=== PATIENT | male | born 1965 ===

== ENCOUNTER → 2018-12-04 | Day surgery (SDC) | payer OTHER | END | disposition home or self-care (01) | LOC: ADM 11-29 13:30 → AMB-ENDOS 07:00 | DX: C19 Malignant neoplasm of rectosigmoid junction (principal) ==

== ENCOUNTER 2018-12-21 10:25 | Inpatient (IN) | payer OTHER ==
[~2018-12-21] VITALS: Ht 167.6 cm; Wt 73.9 kg
[2018-12-29] MEDS ORDERED: PERCOCET 5-3251 EACH PO (12:26)
[2018-12-29] MEDS ORDERED: OMEPRAZOLE20 MG PO (12:26)
[2018-12-29] MEDS ORDERED: INTESTINEX680 M1 PO (12:26)
== END 2018-12-29 14:28 | disposition home or self-care (01) | DRG 331 ==
LOC: EDSTATUS 15:15 → ADM 15:15 → O/R 12-26 06:35 → SURG 12-26 06:35 → SURH 12-26 15:15 → SURG 12-26 15:50
PROVIDERS: ADMIT Surgery
PROC: 07TC4ZZ Resection of Pelvis Lymphatic, Percutaneous Endoscopic Approach (ICD-10-PCS; 2018-12-26)
PROC: 0DJD8ZZ Inspection of Lower Intestinal Tract, Via Natural or Artificial Opening Endoscopic (ICD-10-PCS; 2018-12-26)
PROC: 0DTN4ZZ Resection of Sigmoid Colon, Percutaneous Endoscopic Approach (ICD-10-PCS; principal; 2018-12-26 15:15)
DX: C19 Malignant neoplasm of rectosigmoid junction (principal)

== ENCOUNTER 2018-12-25 07:31 | Outpatient (CLI) | payer OTHER | END 2018-12-25 07:50 | disposition home or self-care (01) | LOC: LAB 07:31 | DX: E87.5 Hyperkalemia (principal) ==